=== PATIENT | male | born 1995 | race Caucasian/White ===

== ENCOUNTER 2017-04-24 00:12 | Emergency (ER) | payer MEDICAID ==
[~2017-04-24] VITALS: Ht 182.9 cm; Wt 82.0 kg
[2017-04-24 00:13] VITALS: BP 122/69
== END 2017-04-24 01:14 | disposition home or self-care (01) ==
LOC: ED 00:45
DX: M25.512 Pain in left shoulder (principal); Z88.0 Allergy status to penicillin
CPT/HCPCS: 99281

== ENCOUNTER 2017-09-23 21:13 | Emergency (ER) | payer MEDICAID ==
[~2017-09-23] VITALS: Ht 182.9 cm; Wt 80.7 kg
[2017-09-23 21:20] VITALS: BP 119/75
[2017-09-23] MEDS ORDERED: FLUORESCEIN OPHTHALMIC 1 MG STRIP ONE (21:37)
[2017-09-23] MEDS ORDERED: PROPARACAINE OPHTH 0.5%, 15ML ONE (21:38)
== END 2017-09-23 22:37 | disposition home or self-care (01) ==
LOC: ED 22:00
DX: T15.02XA Foreign body in cornea, left eye, initial encounter (principal); X58.XXXA Exposure to other specified factors, initial encounter; Y93.89 Activity, other specified; Y99.8 Other external cause status; Y92.89 Other specified places as the place of occurrence of the external cause
CPT/HCPCS: 65220; 99284

== ENCOUNTER 2019-08-05 12:32 | Emergency (ER) | payer MEDICAID, OTHER ==
[~2019-08-05] VITALS: Ht 180.3 cm; Wt 82.0 kg
[2019-08-05 12:37] VITALS: BP 120/73
[2019-08-05] MEDS ORDERED: LIDOCAINE-MPF 1%, 5ML ONE (12:58)
[2019-08-05] MEDS ORDERED: LIDOCAINE-MPF 1%, 5ML INFIL ONE (13:00)
[2019-08-05] MEDS ORDERED: DIPH,PERTUSS(ACELL),TET VAC/PF 0.5 ML IM-VACC ONE ×2 (13:00→13:02)
[2019-08-05] MEDS ORDERED: KETOROLAC 30 MG/1 ML IM ONE (13:00)
[2019-08-05] MEDS ORDERED: KETOROLAC 30 MG/1 ML ONE (13:02)
[2019-08-05] MEDS ORDERED: NEOSPORIN OINT. PKT 1 PACKET ONE (14:27)
== END 2019-08-05 15:04 | disposition home or self-care (01) ==
LOC: ED 14:48
DX: S61.421A Laceration with foreign body of right hand, initial encounter (principal); S61.021A Laceration with foreign body of right thumb without damage to nail, initial encounter; F17.200 Nicotine dependence, unspecified, uncomplicated; Z72.89 Other problems related to lifestyle; W45.8XXA Other foreign body or object entering through skin, initial encounter; W25.XXXA Contact with sharp glass, initial encounter; Y93.89 Activity, other specified; Y92.89 Other specified places as the place of occurrence of the external cause; Y99.8 Other external cause status
CPT/HCPCS: 12001; 12042; 73110; 73130; 90471; 90715; 96372; 99285; J1885

== ENCOUNTER 2020-04-01 11:17 | Emergency (ER) | payer MEDICAID, OTHER ==
[~2020-04-01] VITALS: Ht 180.3 cm; Wt 82.8 kg
--- NOTE | 2020-04-01 11:37 | NUR ---
PT WITH OBVIOUS DISLOCATION OF LEFT SHOULDER, +STEP OFF APPEARANCE. +DISTAL CSM. PT POSITIONED ON GURNEY WITH PILLOWS TO SUPPORT LEFT ARM/SHOULDER FOR COMFORT. ER PA AT BEDSIDE, ASSESSMENT POC DISCUSSED AND ORDERS REC'D. VSS, CALL LIGHT W/I REACH
[2020-04-01] MEDS ORDERED: ONDANSETRON 2MG/ML, 2ML ONE (11:38)
[2020-04-01] MEDS ORDERED: MORPHINE SULFATE 4 MG/ML, 1ML ONE (11:38)
[2020-04-01] MEDS ORDERED: MORPHINE SULFATE 4 MG/ML, 1ML IVPush PRN (12:00)
[2020-04-01] MEDS ORDERED: ONDANSETRON 2MG/ML, 2ML IVPush ONE (12:00)
[2020-04-01] MEDS ORDERED: SODIUM CHLORIDE FLUSH 10ML SYR IVF ONE (12:00)
[2020-04-01] MEDS ORDERED: PROPOFOL 10 MG/ML, 100ML IV ONE (12:00)
--- NOTE | 2020-04-01 12:41 | NUR ---
LATE ENTRY FOR 1227, DR ALMEIDA AND TARI POTTS AT BEDSIDE. PT MED NOTED AND AND LEFT SHOULDER REDUCED W/O DIFFICULTY BY TARI FUENTES. PT TOLLERATED WELL AND ARROUSED BY 1230. SHOULDER IMMOBILIZER PLACED. PT DENIES PAIN AND REPORTS NO MEMORY OF EVENT. VSS.
[2020-04-01] MEDS ORDERED: KETOROLAC 30 MG/1 ML IVPush ONE (13:00)
--- NOTE | 2020-04-01 13:09 | NUR ---
PT AWAKE ALERT, TALKING WITH FRIEND AT BEDSIDE. PT DENIES ANYMEMORY OF PROCEDURE EVENTS BEYOND WHEN HE RECIEVED DAVID PROPOFOL. VSS, NAD NOTED. DISTAL CSM+, SHOLDER IMMOBILIZER IN PLACE.
[2020-04-01 13:24] VITALS: BP 114/66
--- NOTE | 2020-04-01 13:25 | NUR ---
Patient/Caregiver given discharge instructions and they have confirmed that they understand the instructions. Patient ambulatory with steady gait. PT HOME WITH FRIEND, KARINA LU. KARINA VERBALIZES UNDERSTANDING THAT PT SHOULD NOT BE LEFT ALONE TODAY AND W/B WITH A RESPONSIBLE ADULT.
== END 2020-04-01 13:26 | disposition home or self-care (01) ==
LOC: ED 11:56
DX: S43.085A Other dislocation of left shoulder joint, initial encounter (principal); W19.XXXA Unspecified fall, initial encounter; Y93.89 Activity, other specified; Y92.098 Other place in other non-institutional residence as the place of occurrence of the external cause; Y99.8 Other external cause status
CPT/HCPCS: 23650; 73030; 96374; 96375; 99285; J1885; J2270; J2405; J2704